=== PATIENT | female | born 1990 | race Caucasian/White ===

== ENCOUNTER 2016-11-03 02:00 | Emergency (ER) | payer OTHER ==
[~2016-11-03] VITALS: Ht 167.6 cm; Wt 59.0 kg
[2016-11-03] MEDS ORDERED: CLINDAMYCIN HC300 M1 PO (02:34)
[2016-11-03] MEDS ORDERED: TRAMADOL HCL50 M1 PO (02:35)
[2016-11-03] MEDS ORDERED: IBUPROFEN800 M1 PO (02:35)
[2016-11-03 04:20] VITALS: BP 120/63
[2016-11-03] MEDS ORDERED: NYSTATIN15 G1 TOP (04:28)
--- NOTE | 2016-11-03 04:29 | ED SKIN/ALLERGY COMPLAINT ---
History of Present Illness General Chief Complaint: Skin Rash/ Abcess Stated Complaint: "RASH ON BOTH LEG,GRION,UNDERARMS X1DAYS" Source: patient Exam Limitations: no limitations Vital Signs & Intake/Output Vital Signs & Intake/Output Vital Signs Date Time Temp Pulse Resp B/P B/P Pulse O2 O2 Flow FiO2 Mean Ox Delivery Rate 11/03 220 97.2 79 18 122/77 100 Room Air Allergies Coded Allergies: Sulfa (Sulfonamide Antibiotics) (HIVES 11/03/16) Reconcile Medications Clindamycin HCl 300 MG CAPSULE 300 MG PO 4 TIMES/DAY ANTIBIOTIC, INFECTION ( Reported) Ibuprofen 800 MG TABLET 800 MG PO PAIN CONTROL (Reported) Tramadol HCl 50 MG TABLET 50 MG PO PAIN CONTROL (Reported) Triage Note: PT TO ED C/O WOUND TO LEFT INNER THIGH WITH REDNESS AND ITCHINESS. PT REPORTS BEING ON CLINDAMYCIN SINCE TUESDAY FOR WOUND BUT STATES THAT WOUND HAS GOTTEN WORSE AND REPORTS HAVING ITCHINESS IN GROIN AND UNDERARMS FOR TWO DAYS. OPEN WOUND WITH REDNESS IN SURROUNDING SKIN NOTED. PT DENIES FEVER AND CHILLS. Triage Nurses Notes Reviewed? yes : No Patient currently breastfeeds: No HPI: Patient presents for evaluation of a rash of the axilla and groin and left leg that began yesterday. Patient states that the rashes of the axilla and groin have been intermittent and seem to come and go. However the rash of the left proximal medial thigh has been persistent. She was evaluated by a physician at a walk-in center and prescribed clindamycin. She has also been using triamcinolone from a prior skin rash. There has been no fever or cold symptoms. The rash of the left thigh is attributed to an insect bite although they do not know what kind of insect it was. There is a small ulceration in the middle of the rash. The rash has been itchy causing the patient to scratch. Past History Travel History Traveled to [place] past 21 day No Medical History Any Pertinent Medical History? see below for history Surgical History Surgical History: non-contributory Psychosocial History What is your primary language Maltese Tobacco Use: Never used Family History Hx Contributory? No Review of Systems Review of Systems Constitutional: Reports: no symptoms. EENTM: Reports: no symptoms. Respiratory: Reports: no symptoms. Cardiovascular: Reports: no symptoms. GI: Reports: no symptoms. Genitourinary: Reports: no symptoms. Musculoskeletal: Reports: no symptoms. Skin: Reports: see HPI. Neurological/Psychological: Reports: no symptoms. Hematologic/Endocrine: Reports: no symptoms. Immunologic/Allergic: Reports: no symptoms. All Other Systems: Reviewed and Negative Physical Exam Physical Exam General Appearance: see below Comments: Gen.: Well-nourished, well-developed, no acute respiratory distress. Head: Normocephalic, atraumatic. Eyes: Normal inspection bilaterally Ears: Normal inspection bilaterally Nose: Normal inspection Throat/mouth : Moist mucosa Neck: Supple, full range of motion, no goiter Lungs: Quiet respirations Back: Normal range of motion Abdomen: Nondistended Extremities: Normal range of motion grossly, slight erythema of the groin creases bilaterally, 1 cm diameter ulceration of the skin of the proximal medial left thigh with slight yellowish coating. There is surrounding erythema with tenderness that the patient attributes to the use of a bandage. There is no ecchymoses or violaceous discoloration. Neurologic: Cranial nerves grossly intact, speech is clear Skin: warm and dry Psychiatric: Calm, cooperative, no apparent delusions or hallucinations Progress Differential Diagnosis: Lyme disease, cellulitis, abscess, insect bite/spider bite Plan of Care: Discontinue triamcinolone, and nystatin and continue clindamycin. Benadryl as needed for itching. Departure Departure Disposition: HOME OR SELF CARE Condition: Stable Clinical Impression Primary Impression: Spider bite Qualifiers: Encounter type: initial encounter Injury intent: accidental or unintentional Qualified Code: T63.301A - Toxic effect of unspecified spider venom, accidental (unintentional), initial encounter Referrals: UNKNOWN (PCP/Family) Additional Instructions: Stop using the triamcinolone cream. Nystatin as prescribed for the groin rash and around the spider bite. Continue the clindamycin as prescribed. Benadryl [id number] as needed for itching. Follow-up with your primary care doctor in 48 hours for reevaluation. Return if any concerns or sudden worsening. Thank you for choosing the [facility] for your care. It was a pleasure to serve you today. Rafael Morse M.D. [facility] Departure Forms: Customer Survey General Discharge Information Prescriptions: Current Visit Scripts Nystatin 1 GARFIELD TOP TID PRN rash #15 GM apply to affected area(s)
== END 2016-11-03 04:34 ==
LOC: ERH 02:00
DX: T63.301A Toxic effect of unspecified spider venom, accidental (unintentional), initial encounter (principal)